=== PATIENT | male | born 1970 | race Caucasian/White ===

== ENCOUNTER 2023-06-12 06:40 | Day surgery (SDC) | payer MEDICAID ==
[~2023-06-12] VITALS: Ht 172.7 cm; Wt 167.8 kg
[~2023-06-12 06:40] MED LIST: ESCI10TA PO; METO50TA20 PO; RIVA20TA PO
[2023-06-12] MEDS ORDERED: MIDAZOLAM 2 MG/2 ML VIAL ONE ×3 (08:05→08:44)
[2023-06-12] MEDS ORDERED: fentaNYL citrate 0.05 MG/ML VIAL ONE (08:05)
[2023-06-12] MEDS ORDERED: LIDOCAINE 2% 100 MG/5 ML UJET TP ONE ×2 (11:00→12:04)
[2023-06-12] MEDS ORDERED: MIDAZOLAM 2 MG/2 ML VIAL IVP ONE (11:00)
[2023-06-12] MEDS ORDERED: fentaNYL citrate 0.05 MG/ML VIAL IVP ONE (11:00)
== END 2023-06-12 10:55 | disposition home or self-care (01) ==
LOC: MOR 06:40 → MMU 06:41 → MOR 10:55
PROVIDERS: ATTEND Internal Medicine Gastroenterology
DX: Z12.11 Encounter for screening for malignant neoplasm of colon (principal); K29.70 Gastritis, unspecified, without bleeding; K29.80 Duodenitis without bleeding; K57.30 Diverticulosis of large intestine without perforation or abscess without bleeding; E11.9 Type 2 diabetes mellitus without complications; E78.00 Pure hypercholesterolemia, unspecified; F32.A Depression, unspecified; I10 Essential (primary) hypertension; E66.9 Obesity, unspecified; Z79.84 Long term (current) use of oral hypoglycemic drugs; Z79.899 Other long term (current) drug therapy; Z98.890 Other specified postprocedural states; Z68.43 Body mass index [BMI] 50.0-59.9, adult
CPT/HCPCS: 36415; 43239; 45378; 82948; 86677; J2250; J3010